=== PATIENT | female | born 1940 | race Caucasian/White ===

== ENCOUNTER → 2024-03-27 07:27 | Outpatient (REF) | payer MEDICARE, OTHER, SELFPAY | LOC: RAD 07:27 | PROVIDERS: ATTENDING PHYSICIAN Internal Medicine Hematology & Oncology; FAMILY PHYSICIAN Nurse Practitioner | DX: C7A.011 Malignant carcinoid tumor of the jejunum (principal) | CPT/HCPCS: 71260; 74177; Q9967 ==

== ENCOUNTER → 2024-12-06 13:17 | Outpatient (REF) | payer MEDICARE, OTHER, SELFPAY | LOC: RAD 13:17 | PROVIDERS: ATTENDING PHYSICIAN Nurse Practitioner; FAMILY PHYSICIAN Nurse Practitioner | DX: R10.10 Upper abdominal pain, unspecified (principal) | CPT/HCPCS: 74177; Q9967 ==